=== PATIENT | male | born 1965 | race Caucasian/White ===

== ENCOUNTER 2020-07-31 06:55 | Day surgery (SDC) | payer OTHER ==
[~2020-07-31] VITALS: Ht 180.3 cm; Wt 101.8 kg
[~2020-07-31 06:55] MED LIST: ALBU90OI INH; GABA100 PO; GABA300 PO; HYDROCHLOROTH12.5 MG PO; LEVO750 PO; MELO7.5 PO; OMEP20ER PO; PRED20 PO; VALS80 PO
--- NOTE | 2020-07-31 07:59 | NUR ---
07/31/20 0759 Daisy Butler PT. STATES"ALWAYS STRUGGLING FOR AIR. INHALERS DON'T HELP & PT. CAN'T AFFORD THEM. PT. VERBALIZES HAVING A SORE THROAT FROM HIS CHRONIC COUGH, DR. STEVENSON. PT. HAS APPOINT. WITH ENT. PT. ALSO HAS CHRONIC LOWER BACK MIDE BACK & RIGHT HIP PAIN.
--- NOTE | 2020-07-31 09:08 | NUR ---
07/31/20 0908 Camelia Phillips PATIENT REFUSED MULTIPLE OFFERS OF SOMETHING TO DRINK. HE DENIES ANY PAIN OR DISCOMFORT IN HIS THROAT WHEN SWALLOWING. HE STATES HIS PAIN LEVEL IS THE SAME BEFORE PROCEDURE AND IS IN HIS BACK. HE VERBALIZES THAT HE HAS NO PAIN IN PROCEDURE AREA AT ALL, JUST HIS BACK. PATIENT WAS DISCHARGED IN STABLE CONDITION
--- NOTE | 2020-07-31 09:31 | NUR ---
07/31/20 0931 Daisy Butler DURING PROCEDURE PT. WITH STRIDOR BREATHING SOUNDS, PT. SUCTIONED NEEDED T.O.PROCEDURE FOR SMALL AMT. CLEAR SECRETIONS EACH TIME. ALSO JAW THRUST/CHIN LIFT PROVIDED NEEDED.
== END 2020-07-31 08:55 | disposition home or self-care (01) ==
LOC: ORSCSDS 06:55
PROVIDERS: Student in an Organized Health Care Education/Training Program
PROC: 0DB98ZX Excision of Duodenum, Via Natural or Artificial Opening Endoscopic, Diagnostic (ICD-10-PCS; principal; 2020-07-31 08:00)
PROC: 0DB78ZX Excision of Stomach, Pylorus, Via Natural or Artificial Opening Endoscopic, Diagnostic (ICD-10-PCS; principal; 2020-07-31 08:00)
PROC: 0DB58ZX Excision of Esophagus, Via Natural or Artificial Opening Endoscopic, Diagnostic (ICD-10-PCS; principal; 2020-07-31 08:00)
DX: K21.9 Gastro-esophageal reflux disease without esophagitis (principal); K22.70 Barrett's esophagus without dysplasia; K29.70 Gastritis, unspecified, without bleeding; K44.9 Diaphragmatic hernia without obstruction or gangrene; I10 Essential (primary) hypertension; Z79.899 Other long term (current) drug therapy
CPT/HCPCS: 88305; 88342; J0330; J0461; J2405; J2704; J7120

== ENCOUNTER 2022-05-02 16:18 | Emergency (ER) | payer OTHER ==
[~2022-05-02] VITALS: Ht 180.3 cm; Wt 95.2 kg
[2022-05-02] MEDS ORDERED: IBUP400 (16:54)
[2022-05-02] MEDS ORDERED: OMEP20ER PO (16:54)
== END 2022-05-02 18:00 | disposition home or self-care (01) ==
LOC: ER 16:18
DX: S16.1XXA Strain of muscle, fascia and tendon at neck level, initial encounter (principal); R40.2410 Glasgow coma scale score 13-15, unspecified time; J45.909 Unspecified asthma, uncomplicated; K21.9 Gastro-esophageal reflux disease without esophagitis; Z91.018 Allergy to other foods; Z79.899 Other long term (current) drug therapy; Z98.1 Arthrodesis status; V43.52XA Car driver injured in collision with other type car in traffic accident, initial encounter
CPT/HCPCS: 72125; 96374; 99284-25; J1885